=== PATIENT | female | born 1985 | race Caucasian/White ===

== ENCOUNTER 2016-06-20 10:58 | Emergency (ER) | payer BC ==
[~2016-06-20 10:58] MED LIST: OXYC1SOL5 PO; PRENTAB62 PO
[2016-06-20 11:00] VITALS: BP 135/82; PULSE 89; RESP 12; TEMP 97.9; O2SAT 98
== END 2016-06-20 11:25 | disposition left against medical advice (07) ==
LOC: NED 10:58
DX: R68.89 Other general symptoms and signs (principal)
CPT/HCPCS: 99281